=== PATIENT | male | born 1990 | race African-American/Black ===

== ENCOUNTER 2022-08-07 07:51 | Emergency (ER) | payer OTHER ==
[~2022-08-07] VITALS: Ht 172.7 cm; Wt 81.6 kg
== END 2022-08-07 13:57 | disposition home or self-care (01) ==
LOC: ER 07:51
DX: K50.10 Crohn's disease of large intestine without complications (principal); K29.70 Gastritis, unspecified, without bleeding; R11.10 Vomiting, unspecified